=== PATIENT | female | born 2005 | race Caucasian/White ===

== ENCOUNTER 2024-02-04 20:57 | Emergency (ER) | payer OTHER, SELFPAY ==
[2024-02-04 21:50] LABS: #Basophils 0.06 10x3/uL (0.0-0.2); %Basophils 0.8 % (0.0-1.0); %Eosinophils 2.3 % (0.0-10.0); %Lymphocytes 31.7 % (28.0-48.0); %Monocytes 8.6 % (0.0-4.0); %Neutrophils 56.3 % (31.0-61.0); Hematocrit 40.4 % (36.0-47.0); Hemoglobin 13.3 g/dL (12.0-16.0); Mean Corpuscular HGB CONC 32.9 g/dL (32.0-36.0); Mean Corpuscular Hemoglobin 26.6 pg (25.0-35.0); Mean Corpuscular Volume 80.8 fL (78.0-98.0); Mean Platelet Volume 8.7 fL (7.4-10.4); Platelet Count 384 10x3/uL (130-400)
[2024-02-04 21:59] LABS: BHCG - Serum Negative (NEGATIVE); Pregs Control Background? CLEAR/WHITE (CLR/WHITE); Pregs Control Bar Appear? YES (CONTROL BAR)
[2024-02-04 22:05] LABS: ALT (SGPT) 33 U/L (8-55); AST (SGOT) 16 U/L (5-30); Albumin 3.7 g/dL (3.5-5.0); Alkaline Phosphatase 89 U/L (40-100); Anion Gap 13 mmol/L (10-20); BUN (Urea Nitrogen) 14 mg/dL (8.4-21.0); Bilirubin, Total 0.1 mg/dL (0.2-1.2); Calc. Creatinine Clearance 0 mL/min (70-130); Calcium 9.8 mg/dL (7.8-10.44); Carbon Dioxide 22 mmol/L (22-29); Chloride 110 mmol/L (98-107); Estimated GFR 90; Globulin 3.7 g/dL (2.4-3.5); Glucose 95 mg/dL (70-105); Lipase 21 U/L (8-78); Potassium 3.9 mmol/L (3.5-5.1); Protein, Total 7.4 g/dL (6.0-8.3); Sodium 141 mmol/L (136-145)
[2024-02-04 22:13] LABS: Troponin I Less than 0.010 ng/mL (< 0.028)
[2024-02-04] MEDS ORDERED: Famotidine 20 MG TAB ONE (22:41)
== END 2024-02-04 23:03 | disposition home or self-care (01) ==
LOC: ERS 20:57
DX: R07.9 Chest pain, unspecified (principal); Z55.0 Illiteracy and low-level literacy
CPT/HCPCS: 36415; 71045; 80053; 83690; 84484; 84703; 85025; 93005